=== PATIENT | female | born 1955 | race Two or more races ===

== ENCOUNTER 2019-05-27 10:33 | Day surgery (SDC) | payer BC ==
[~2019-05-27] VITALS: Ht 162.6 cm; Wt 66.7 kg
[~2019-05-27 10:33] MED LIST: ACET-2708 PO; AMLO5TAB88 PO; ASPI-1497 PO; DIAZ5TAB PO; HYDR12.54 PO; LISI-604 PO; METF-416 PO; PANT40TA4 PO; SITA100T11 PO; TOLT2TAB2 PO
[2019-05-27] MEDS ORDERED: LACTATED RINGERS 1,000 ML IV SCH (11:25)
[2019-05-27] MEDS ORDERED: HYDR12.54 PO (12:11)
[2019-05-27] MEDS ORDERED: MIRA50TA PO (12:11)
[2019-05-27] MEDS ORDERED: LIDOCAINE HCL/PF 1% 10 MG/ML 5ML VIAL ONE (13:38)
[2019-05-27] MEDS ORDERED: PROPOFOL 200MG/20ML VIAL IV ONE (13:38)
[2019-05-27] MEDS ORDERED: GLYCOPYRROLATE 0.2 MG/ML 2ML VIAL ONE (13:38)
[2019-05-27] MEDS ORDERED: MIDAZOLAM HCL 2 MG/2 ML VIAL ONE (13:38)
[2019-05-27] MEDS ORDERED: SUCCINYLCHOLINE CHLORIDE 200MG/10ML IV ONE (13:38)
[2019-05-27] MEDS ORDERED: FENTANYL CITRATE/PF 50MCG/ML 2ML VIAL ONE (13:38)
[2019-05-27] MEDS ORDERED: ONDANSETRON HCL 4MG/2ML INJ ONE (13:38)
[2019-05-27] MEDS ORDERED: METOCLOPRAMIDE HCL 10MG/2ML VIAL ONE (13:38)
[2019-05-27] MEDS ORDERED: HYDROCODONE/ACETAMINOPHEN 5/325MG TABLET PO PRN (16:24)
== END 2019-05-27 17:15 | disposition home or self-care (01) ==
LOC: OR 10:33
PROVIDERS: ATTEND Urology
DX: N20.0 Calculus of kidney (principal); K21.9 Gastro-esophageal reflux disease without esophagitis; E11.9 Type 2 diabetes mellitus without complications; I10 Essential (primary) hypertension; Z79.84 Long term (current) use of oral hypoglycemic drugs; Z79.82 Long term (current) use of aspirin; Z79.899 Other long term (current) drug therapy; Z88.5 Allergy status to narcotic agent; Z90.49 Acquired absence of other specified parts of digestive tract; Z98.890 Other specified postprocedural states; Z87.442 Personal history of urinary calculi; Z82.49 Family history of ischemic heart disease and other diseases of the circulatory system; Z83.3 Family history of diabetes mellitus
CPT/HCPCS: 50590; 82962; J0330; J2250; J2405; J2704; J2765; J3010; J3490